=== PATIENT | male | born 1990 | race Caucasian/White ===

== ENCOUNTER 2022-11-19 12:51 | Emergency (ER) | payer BC ==
[~2022-11-19] VITALS: Ht 188 cm; Wt 94.9 kg
[2022-11-19] MEDS ORDERED: IBUP80TA PO (15:25)
[2022-11-19] MEDS ORDERED: AMOX875T2 PO (15:25)
[2022-11-19] MEDS ORDERED: KETOROLAC 60MG 2ML VIAL IM ONE (15:25)
[2022-11-19 15:40] VITALS: BP 158/90
== END 2022-11-19 15:42 | disposition home or self-care (01) ==
LOC: M ED 12:51
DX: K02.9 Dental caries, unspecified (principal); K08.89 Other specified disorders of teeth and supporting structures; F17.200 Nicotine dependence, unspecified, uncomplicated
CPT/HCPCS: 96372; 99283; J1885